=== PATIENT | male | born 1940 | race Native Hawaiian/Other Pacific Islander ===

== ENCOUNTER 2016-03-06 10:58 | Inpatient (IN) | payer OTHER ==
[~2016-03-06] VITALS: Ht 177.8 cm; Wt 57.6 kg
[2016-03-06] VITALS (17 sets, daily range): BP systolic 100–179; BP diastolic 62–84; TEMP 97.6–97.9; Ht 177.8 cm; Wt 57.6 kg
[~2016-03-06 10:58] MED LIST: AMLO2.5T PO; CARDURA4 MG PO; MULT VITAMI1 PO; NAMENDA10 MG PO; SEROQUEL50 MG PO; TRAZ100T PO
[2016-03-06] MEDS ORDERED: PANT40TA PO (17:21)
[2016-03-06] MEDS ORDERED: METAMUCIL0.52 GM OR (17:23)
[2016-03-06] MEDS ORDERED: DONE5TAB PO (17:29)
[2016-03-06] MEDS ORDERED: ARIP10TA PO (17:31)
[2016-03-06] MEDS ORDERED: ESCI10TA PO ×2 (17:32→17:35)
[2016-03-06] MEDS ORDERED: RISP0.25 PO (17:40)
[2016-03-06] MEDS ORDERED: RISP1TAB PO (17:44)
[2016-03-06] MEDS ORDERED: ALUMSUS6 PO (17:57)
[2016-03-06] MEDS ORDERED: TYLENOL325 MG OR (17:59)
[2016-03-06] MEDS ORDERED: MAGNSUS68 PO (18:00)
[2016-03-06] MEDS ORDERED: EMOLOIN22 TOP (18:03)
[2016-03-06] MEDS ORDERED: TYLENOL325 MG PO (18:04)
[2016-03-06] MEDS ORDERED: HALO5INJ3 IM (18:06)
[2016-03-06] MEDS ORDERED: HALO5TAB10 PO (18:09)
[2016-03-06] MEDS ORDERED: ZIPR20IN IM (18:10)
[2016-03-06 20:12] LABS: POTASSIUM 4.3 mmol/L (3.6-5.2)
[2016-03-07] VITALS (23 sets, daily range): BP systolic 91–139; BP diastolic 56–84; TEMP 97.5–98.1
[2016-03-07 07:00] LABS: PLATELET COUNT 298 K/uL (142-355)
[2016-03-08] VITALS (23 sets, daily range): BP systolic 101–166; BP diastolic 49–98; TEMP 97–99
[2016-03-08 06:52] LABS: PLATELET COUNT 272 K/uL (142-355)
[2016-03-09] VITALS (22 sets, daily range): BP systolic 115–184; BP diastolic 60–96; TEMP 97–98.4
[2016-03-09 06:56] LABS: POTASSIUM 3.7 mmol/L (3.6-5.2)
[2016-03-09 08:09] LABS: PLATELET COUNT 276 K/uL (142-355)
[2016-03-09 11:39] LABS: POTASSIUM 3.7 mmol/L (3.6-5.2)
[2016-03-09 14:55] LABS: POTASSIUM 3.7 mmol/L (3.6-5.2)
[2016-03-09 18:48] LABS: POTASSIUM 3.7 mmol/L (3.6-5.2)
[2016-03-10] VITALS (21 sets, daily range): BP systolic 5–189; BP diastolic 57–101; TEMP 97.1–98.6
[2016-03-10 06:14] LABS: PLATELET COUNT 252 K/uL (142-355)
[2016-03-10 06:27] LABS: POTASSIUM 3.8 mmol/L (3.6-5.2)
[2016-03-11] VITALS (24 sets, daily range): BP systolic 105–190; BP diastolic 68–100; TEMP 97.1–98.2
[2016-03-11 06:40] LABS: PLATELET COUNT 217 K/uL (142-355)
[2016-03-11 06:52] LABS: POTASSIUM 3.6 mmol/L (3.6-5.2)
[2016-03-12] VITALS (8 sets, daily range): BP systolic 61–145; BP diastolic 37–91; TEMP 97.2–97.5
== END 2016-03-12 08:35 | disposition expired | DRG 918 ==
LOC: ICU 10:58
PROVIDERS: Emergency Medicine; ADMIT Psychiatry & Neurology Psychiatry
PROC: 05HM33Z Insertion of Infusion Device into Right Internal Jugular Vein, Percutaneous Approach (ICD-10-PCS; principal; 2016-03-10)
PROC: B543ZZA Ultrasonography of Right Jugular Veins, Guidance (ICD-10-PCS; 2016-03-10)
DX: T43.8X5A Adverse effect of other psychotropic drugs, initial encounter (principal); I87.8 Other specified disorders of veins; E86.0 Dehydration; G30.8 Other Alzheimer's disease; F02.80 Dementia in other diseases classified elsewhere, unspecified severity, without behavioral disturbance, psychotic disturbance, mood disturbance, and anxiety; Y92.238 Other place in hospital as the place of occurrence of the external cause; N40.0 Benign prostatic hyperplasia without lower urinary tract symptoms; J44.9 Chronic obstructive pulmonary disease, unspecified; K21.9 Gastro-esophageal reflux disease without esophagitis; M85.88 Other specified disorders of bone density and structure, other site; M15.8 Other polyosteoarthritis; E78.4 Other hyperlipidemia
CPT/HCPCS: 36415; 36591; 36600; 51702; 80048; 80053; 81000; 82550; 82570; 82805; 82962; 83735; 83880; 84100; 84300; 84540; 85027; 86609; 86618; 94760; 96372; C1768; J1250; J1644; J1956; J3490